=== PATIENT | male | born 1975 | race African-American/Black ===

== ENCOUNTER 2019-07-13 10:02 | Emergency (ER) | payer SELFPAY ==
[~2019-07-13] VITALS: Ht 167.6 cm; Wt 61.0 kg
[2019-07-13 10:21] VITALS: BP 142/98
[2019-07-13] MEDS ORDERED: ACETAMINOPHEN WITH CODEINE 300/30MG TABLET PO ONE (10:45)
== END 2019-07-13 11:18 | disposition home or self-care (01) ==
LOC: ER 10:02
DX: M25.511 Pain in right shoulder (principal); I10 Essential (primary) hypertension; J44.9 Chronic obstructive pulmonary disease, unspecified; Z98.890 Other specified postprocedural states
CPT/HCPCS: 99282

== ENCOUNTER 2019-09-02 08:32 | Emergency (ER) | payer SELFPAY ==
[~2019-09-02] VITALS: Ht 167.6 cm; Wt 62.0 kg
[2019-09-02 08:40] VITALS: BP 138/94
[2019-09-02] MEDS ORDERED: HYDROCODONE/ACETAMINOPHEN 5/325MG TABLET PO ONE (09:00)
== END 2019-09-02 09:34 | disposition home or self-care (01) ==
LOC: ER 08:32
DX: G89.29 Other chronic pain (principal); M54.5 Low back pain; K04.7 Periapical abscess without sinus
CPT/HCPCS: 99283